=== PATIENT | female | born 1965 | race American Indian/Alaskan Native ===

== ENCOUNTER 2017-11-12 15:51 | Emergency (ER) | payer OTHER ==
--- NOTE | 2017-11-12 16:27 | C.PDOC ---
History Of Present Illness 52-YEAR-OLD MALE, PRESENTS TO THE EMERGENCY DEPARTMENT WITH COMPLAINTS OF INTERMIT HTN X 3 DAYS. BASELINE AVG 120/80. BP MAX 150/100 @ HOME, S/P HYDRALAZINE 10 MG PRO[employer]NAG[employer] INTERN. PS TAKES HYDRALAZINE SPORADICALLY DUE TO SIDE EFFECTS, OTHERWISE COMPLIANT W HTN MEDS. NO ASSOC CP, BRAUN OTHER ASSOC SX EXAM NONTOXIC NAD 160/100 NEG Time Seen by Provider: 11/12/17 16:11 Chief Complaint (Nursing): High Blood Pressure History Per: Patient History/Exam Limitations: no limitations Current Symptoms Are (Timing): Still Present Severity: Moderate Past Medical History Reviewed: Historical Data, Nursing Documentation Vital Signs: Last Vital Signs Temp 98.1 F 11/12/17 17:20 Pulse 99 H 11/12/17 17:20 Resp 18 11/12/17 17:20 BP 97/66 L 11/12/17 17:20 Pulse Ox 100 11/12/17 17:20 - Medical History PMH: HTN Family History: States: No Known Family Hx - Social History Hx Alcohol Use: Yes Hx Substance Use: No Review Of Systems Constitutional: Negative for: Fever, Chills Cardiovascular: Negative for: Chest Pain, Palpitations, Edema Respiratory: Negative for: Shortness of Breath Gastrointestinal: Negative for: Nausea, Vomiting, Abdominal Pain Musculoskeletal: Negative for: Neck Pain, Arm Pain Neurological: Negative for: Weakness, Numbness, Headache, Dizziness Physical Exam - Physical Exam Appears: Well, Non-toxic, No Acute Distress, Other (160/100) Skin: Normal Color, Warm, Dry, No Rash Head: Normacephalic Eye(s): bilateral: PERRL Nose: Normal Oral Mucosa: Moist Lips: Normal Appearing Neck: Normal ROM Chest: Symmetrical Cardiovascular: Rhythm Regular, No Murmur Respiratory: Normal Breath Sounds, No Accessory Muscle Use Gastrointestinal/Abdominal: Soft, No Tenderness Extremity: Normal ROM, No Deformity, No Swelling Neurological/Psych: Oriented x3, Normal Speech ED Course And Treatment O2 Sat by Pulse Oximetry: 100 (ra) Pulse Ox Interpretation: Normal Reevaluation Time: 17:55 Reassessment Condition: Unchanged (90/60 APPEARS COMFORTABLE NAD.) Disposition Counseled Patient/Family Regarding: Diagnosis, Need For Followup - Disposition Referrals: YOUR,PMD [Other] Disposition: HOME/ ROUTINE Disposition Time: 17:55 Condition: IMPROVED Instructions: High Blood Pressure (DC) Forms: [employer] (Bhutanese) - Clinical Impression Clinical Impression: Hypertension - Scribe Statement The provider has reviewed the documentation as recorded by the Scribe (Josué Hoang) Provider Attestation: All medical record entries made by the Scribe were at my direction and personally dictated by me. I have reviewed the chart and agree that the record accurately reflects my personal performance of the history, physical exam, medical decision making, and the department course for this patient. I have also personally directed, reviewed, and agree with the discharge instructions and disposition.
[2017-11-12 17:21] VITALS: RESP 18; TEMP 98.1
[2017-11-12 19:15] VITALS: BP 132/91; PULSE 64; O2SAT 99
== END 2017-11-12 19:14 | disposition home or self-care (01) ==
LOC: C.ER 15:51
DX: I10 Essential (primary) hypertension (principal)